=== PATIENT | female | born 1985 | race Caucasian/White ===

== ENCOUNTER → 2016-10-19 | Day surgery (SDC) | payer SELFPAY ==
[~2016-10-19] MED LIST: AZITHROMYCIN 250 MG TAB PO ONE; BUPIVACAINE 0.25% 30 ML VIAL ONE; CEFTRIAXONE 1 GM in D5W 100 ML IV ONE; Clindamycin 600 mg/D5W 50 ml 600 MG/50 ML IVB IV ONE; DEXAMETHASONE 4 MG/ML VIAL IV ONE; FENTANYL 100 MCG/2 ML VIAL IV ONE; FENTANYL 100 MCG/2 ML VIAL IV PRN; GENTAMICIN 160 MG in NS 100 ML IV ONE; GLYCOPYRROLATE 1 MG VIAL IM ONE; HYDROmorphone 1 MG INJECTION IV ONE; HYDROmorphone 1 MG INJECTION IV PRN; KETOROLAC TROMETH 30 MG/ML VIAL IM ONE; LABETALOL 20 MG/4 ML SYRINGE IV PRN; LIDOCAINE 100 MG PFS IV ONE; LR 1,000 ML IV SCH; MEPERIDINE 25 MG/ML TUBEX IV PRN; METOCLOPRAMIDE 10 MG/2 ML VIAL IV ONE; MIDAZOLAM 2 MG/2 ML VIAL IV ONE; NEOSTIGMINE 1 MG/1 ML (1:1000) INJ 10 ML MDV IM ONE; NS 1,000 ML IV ONE; ONDANSETRON HCL 4 MG ODT TAB PO PRN; ONDANSETRON HCL 4 MG/2 ML VIAL IV ONE; ONDANSETRON HCL 4 MG/2 ML VIAL IV PRN; PHENYLEPHRINE 10 MG/ML VIAL IC ONE; PROMETHAZINE 25 MG/ML VIAL IV PRN; PROPOFOL 200 MG/20 ML VIAL IV ONE; Pharmacy Review for Metformin - IV Contrast Given SCH; ROCURONIUM 50 MG/5 ML VIAL IV ONE; SUCCINYLCHOLINE 20 MG/1 ML INJ 10 ML MDV IV ONE; hydrALAZINE 20 MG/ML VIAL IV PRN
[2016-10-19 06:20] VITALS: BMI 21.2
--- NOTE | 2016-10-19 06:23 | EDPRACDOC ---
- General Information Information Source: Patient Mode Of Arrival: Car - History of Present Illness Onset: 2pm yesterday Pain Location: Reports: RLQ Pain Context: Reports: Spontaneous Pain Severity: Mild Pain Quality: Reports: Aching Pain Radiation: Reports: No Radiation Last Menstrual Period: 3 weeks ago : No Adult Abdominal History: Reports: Abdominal Surgery Modifying Factors: improves with: Nothing Female Associated Signs & Symptoms: Reports: Nausea, Vomiting Oral Intake: Normal Urinary Output: Normal <John Paul Jimenez - Last Filed: 10/19/16 07:04> <Denis Herbert - Last Filed: 10/19/16 08:11> - General Information Chief Complaint: Abdominal Pain Stated Complaint: LRQ ABD PAIN/NAUSEA Time Seen by Provider: 10/19/16 06:19 Home Medications: Home Medications Vits W-Ca,Fe,FA(<1Mg) [] 1 each PO DAILY #60 tablet 10/19/16 Allergies/Adverse Reactions: Allergies Allergy/AdvReac Type Severity Reaction Status Date / Time Penicillins Allergy Anaphylaxis Verified 10/19/16 06:29 * - History of Present Illness HPI: PATIENT PRESENTS C/O ABDOMINAL PAIN RLQ SINCE YESTERDAY. HX OF TUBAL LIGATION AND LEFT OOPHORECTOMY. NO FEVER. NAUSEA AND VOMITING. LMP was 10/11/16 (John Paul Jimenez) ED Past Medical History - History Reviewed Yes Nurses notes reviewed and agree except as marked Travel Outside of [place] in the Last 3 Months?: No - Patient Medical History Psychological History: Denies: Depression Surgical History: Denies: Hysterectomy - Social Medical History Smoking Status: Never smoker ETOH: None Substance Abuse: None Lives With: Family Lives In: Home <John Paul Jimenez - Last Filed: 10/19/16 07:04> EDM Review of Systems - Review of Systems ROS Negative Except as Marked: Yes All systems reviewed and were negative except as marked Constitutional: No Symptoms Reported. negative: Fever, Chills, Weakness, Fatigue, Loss of Appetite Eyes: No Symptoms Reported. negative: Redness, Blurred Vision, Double Vision, Discharge, Pain, Light Sensitive, Photophobia Ears: No Symptoms Reported. negative: Pain, Hearing Loss, Drainage, Ear Pulling Throat: No Symptoms Reported. negative: Pain, Swelling Nose: No Symptoms Reported. negative: Congestion, Bleeding, Discharge, Injection, Swelling, Deformity, Ecchymosis, Tender, Abrasion, Laceration Mouth: No Symptoms Reported. negative: Pain, Drooling Respiratory: No Symptoms Reported. negative: Cough, Brassy Cough, Barky Cough, Shortness of Breath, Wheezing, Hemoptysis Cardiovascular: No Symptoms Reported. negative: Chest Pain, Palpitations, Syncope, Edema, Orthopnea, PND, Skin Mottling, Cyanosis Gastrointestinal: Nausea, Pain, Vomiting. negative: Constipation, Diarrhea, Formula Intolerance, Melena Genitourinary: No Symptoms Reported. negative: Dysuria, Hematuria, Frequency, Discharge, Bleeding, Testicular Pain, Neurological: No Symptoms Reported. negative: Headache, Dizziness, Seizure, Numbness, Weakness, Speech Difficulty, Gait Difficulty Musculoskeletal: No Symptoms Reported. negative: Neck, Chestwall, Ribs, Back, Shoulder, Arm, Elbow, Forearm, Wrist, Hand, Pelvis, Hip, Femur, Knee, Leg, Ankle , Foot Integumentary: No Symptoms Reported. negative: Itching, Rash, Bruising, Wound Allergic/Immunologic: No Symptoms Reported. negative: Hives, Itching Hematologic: No Symptoms Reported. negative: Lymphadenopathy, Easy Bruising, Easy Bleeding Endocrine: No Symptoms Reported. negative: Weight Gain, Weight Loss Psychiatric: No Symptoms Reported. negative: Anxiety, Depression, Hallucinations, Insomnia, Suicidal <John Paul Jimenez - Last Filed: 10/19/16 07:04> - Physical Exam Constitutional: Alert (Awake), Distress (MILD) Oriented to: Time, Person, Place - HEENT Head: Normal ( normocephalic) Eye Exam: Normal (PERRL, EOMI, Sclera white) Oropharynx: Normal (Pharynx:Moist without exudate,Gums-no swelling) Tympanic Membrane: Normal ENT EAC: Normal TMJ: Normal Nose: No Symptoms Reported (septum midline) Neck: Normal (FROM, trachea at midline) - Respiratory/Cardiovascular Respiratory: Normal - CTA (BBS clear to auscultation without adventitious sounds ) Cardiovascular: Normal (RRR without murmur, gallop or rub) - GI Auscultation: Normal (NABS) Palpation: Normal (Soft,No rebound or guarding, non distended) Tenderness: Moderate, RLQ. negative: Guarding, Rigidity Ma's Sign: Negative - Bladder: Normal External: Normal Vagina: Discharge (YELLOW) Cervix: Discharge (YELLOW), Tenderness Uterus: Normal size Adnexa: Bilateral: Normal - Musculoskeletal Back: Normal (Non-Tender) Extremities: Normal (Normal tone, Pulses 2+ No cyanosis or edema, FROM) - Integumentary Skin: Normal, Warm, Dry Lymphatics: Normal (no adenopathy) - Neurologic Memory Impaired: Normal Motor Function: Normal (Normal tone, Pulses 2+ No cyanosis or edema, FROM) Cranial Nerve: Normal (CN II-X11 intact sensation, strength 5/5) Cerebellar: Normal Mood Description: Normal Perception: Normal <John Paul Jimenez - Last Filed: 10/19/16 07:04> - Results 10/19/16 06:18 10/19/16 06:18 <John Paul Jimenez - Last Filed: 10/19/16 07:04> - Re-evaluation Re-evaluation 1 Re-evaluation Time: 07:44 - Results 10/19/16 06:18 10/19/16 06:18 <Denis Herbert - Last Filed: 10/19/16 08:11> - Re-evaluation Re-evaluation 1 I HAVE TAKEN OVER CARE OF PT. PT SEEN AND EVALUATED. RESTING COMFORTABLY IN BED. NO DISTRESS. VITAL SIGNS STABLE. No changes in clinical status or new information from previous documentation. Vital Signs: Temp:97.7 F HR: 81 BP: 114/58 RR: 18 Pox: 99%. Continue with current plan. (Denis Herbert) - Results WBC 12.4 xk/uL (3.8-10.8) H 10/19/16 06:18 RBC 3.91 xM/uL (4.20-5.40) L 10/19/16 06:18 Hgb 11.6 g/dL (12.0-16.0) L 10/19/16 06:18 Hct 34.7 % (36-47) L 10/19/16 06:18 MCV 89 fL (81-99) 10/19/16 06:18 MCH 29.5 pg (27-32) 10/19/16 06:18 MCHC 33.3 g/dl (33-36) 10/19/16 06:18 RDW 13.4 % (11.5-14.5) 10/19/16 06:18 Plt Count 230 xk/uL (130-400) 10/19/16 06:18 MPV 9.5 fL (7.4-10.4) 10/19/16 06:18 Neut % (Auto) 62.4 % (45-76) 10/19/16 06:18 Lymph % (Auto) 30.1 % (17-44) 10/19/16 06:18 [place] % (Auto) 6.3 % (3-10) 10/19/16 06:18 Eos % (Auto) 0.9 % (0-5) 10/19/16 06:18 Baso % (Auto) 0.3 % (0-2) 10/19/16 06:18 Absolute Neuts (auto) 7.69 xk/uL (1.7-8.2) 10/19/16 06:18 Absolute Lymphs (auto) 3.72 xk/uL (0.65-4.75) 10/19/16 06:18 Sodium 140 mEq/L (137-146) 10/19/16 06:18 Potassium 3.4 mEq/L (3.5-5.1) L 10/19/16 06:18 Chloride 105 mEq/L (98-107) 10/19/16 06:18 Carbon Dioxide 25 mMOL/L (22-33) 10/19/16 06:18 Anion Gap 13 mEq/L (8-16) 10/19/16 06:18 BUN 8 MG/DL (7-17) 10/19/16 06:18 Creatinine 0.70 MG/DL (0.52-1.04) 10/19/16 06:18 Estimated GFR (MDRD) > 60 mL/min (>=60) 10/19/16 06:18 Glucose 111 mg/dL (70-99) H 10/19/16 06:18 Calculated Osmolality 268 MOs/Kg (270-290) L 10/19/16 06:18 Calcium 8.6 MG/DL (8.4-10.2) 10/19/16 06:18 Corrected Calcium 8.8 MG/DL (8.4-10.2) 10/19/16 06:18 Total Bilirubin 0.6 MG/DL (0.2-1.3) 10/19/16 06:18 AST 23 IU/L (14-36) 10/19/16 06:18 ALT 36 IU/L (9-52) 10/19/16 06:18 Alkaline Phosphatase 51 IU/L (38-126) 10/19/16 06:18 Total Protein 6.8 G/DL (6.3-8.2) 10/19/16 06:18 Albumin 3.8 G/DL (3.5-5.0) 10/19/16 06:18 Lipase 59 U/L (23-300) 10/19/16 06:18 Beta HCG, Quant 1372.5 mIU/mL (<5) 10/19/16 07:22 Urine Color Yellow 10/19/16 06:38 Urine Clarity Clear 10/19/16 06:38 Urine pH 5.0 (5.0-8.0) 10/19/16 06:38 Ur Specific Salters 1.025 (1.003-1.035) 10/19/16 06:38 Urine Protein Neg (NEG/TRACE) 10/19/16 06:38 Urine Glucose (UA) Neg (NEGATIVE) 10/19/16 06:38 Urine Ketones Neg (NEGATIVE) 10/19/16 06:38 Urine Occult Blood Neg (NEG/TRACE) 10/19/16 06:38 Urine Nitrite Neg (NEGATIVE) 10/19/16 06:38 Urine Bilirubin Neg (NEGATIVE) 10/19/16 06:38 Urine Urobilinogen <2.0 MG/DL (0-1) 10/19/16 06:38 Ur Leukocyte Esterase Neg (NEGATIVE) 10/19/16 06:38 Urine RBC 0-2 (0-5) 10/19/16 06:38 Urine WBC 2-5 (0-5) 10/19/16 06:38 Ur Epithelial Cells 1+ 10/19/16 06:38 Urine Bacteria Few (NEG/FEW) 10/19/16 06:38 Urine Mucus Occ (NEG/OCC) 10/19/16 06:38 Urine Test Pos (NEGATIVE) H 10/19/16 06:38 Blood Type A POSITIVE 10/19/16 07:22 Antibody Screen Negative 10/19/16 07:22 Microbiology 10/19/16 06:35 GALLO Preparation - Final Vaginal 10/19/16 06:35 Trichomonas Wet Mount - Final Vaginal Lab Results 10/19/16 10/19/16 10/19/16 07:22 07:22 06:38 WBC RBC Hgb Hct MCV MCH MCHC RDW Plt Count MPV Neut % (Auto) Lymph % (Auto) [place] % (Auto) Eos % (Auto) Baso % (Auto) Absolute Neuts (auto) Absolute Lymphs (auto) Sodium Potassium Chloride Carbon Dioxide Anion Gap BUN Creatinine Estimated GFR (MDRD) Glucose Calculated Osmolality Calcium Corrected Calcium Total Bilirubin AST ALT Alkaline Phosphatase Total Protein Albumin Lipase Beta HCG, Quant 1372.5 Urine Color Yellow Urine Clarity Clear Urine pH 5.0 Ur Specific Salters 1.025 Urine Protein Neg Urine Glucose (UA) Neg Urine Ketones Neg Urine Occult Blood Neg Urine Nitrite Neg Urine Bilirubin Neg Urine Urobilinogen <2.0 Ur Leukocyte Esterase Neg Urine RBC 0-2 Urine WBC 2-5 Ur Epithelial Cells 1+ Urine Bacteria Few Urine Mucus Occ Urine Test Blood Type A POSITIVE Antibody Screen Negative 10/19/16 10/19/16 10/19/16 06:38 06:18 06:18 WBC 12.4 H RBC 3.91 L Hgb 11.6 L Hct 34.7 L MCV 89 MCH 29.5 MCHC 33.3 RDW 13.4 Plt Count 230 MPV 9.5 Neut % (Auto) 62.4 Lymph % (Auto) 30.1 [place] % (Auto) 6.3 Eos % (Auto) 0.9 Baso % (Auto) 0.3 Absolute Neuts (auto) 7.69 Absolute Lymphs (auto) 3.72 Sodium 140 Potassium 3.4 L Chloride 105 Carbon Dioxide 25 Anion Gap 13 BUN 8 Creatinine 0.70 Estimated GFR (MDRD) > 60 Glucose 111 H Calculated Osmolality 268 L Calcium 8.6 Corrected Calcium 8.8 Total Bilirubin 0.6 AST 23 ALT 36 Alkaline Phosphatase 51 Total Protein 6.8 Albumin 3.8 Lipase 59 Beta HCG, Quant Urine Color Urine Clarity Urine pH Ur Specific Salters Urine Protein Urine Glucose (UA) Urine Ketones Urine Occult Blood Urine Nitrite Urine Bilirubin Urine Urobilinogen Ur Leukocyte Esterase Urine RBC Urine WBC Ur Epithelial Cells Urine Bacteria Urine Mucus Urine Test Pos H Blood Type Antibody Screen (Denis Herbert) - Departure Yes I personally saw and evaluated the patient. Education/Counseling Given To: Patient Education/Counseling Given Regarding: Diagnosis, Treatment, Prognosis, Follow Up <John Paul Jimenez - Last Filed: 10/19/16 07:04> - Departure Yes I personally saw and evaluated the patient. Disposition: Admit IP To This Hospital Decision to Admit Time: 08:11 Decision to admit date: 10/19/16 Decision to admit: from ED - Physician Consulted [employer] Time Called: 08:11 Provider Called: Steff Boo Time [employer] Customer Service Specialist Returned Call: 08:11 Consult Reason: WILL SEE IN ED. <Denis Herbert - Last Filed: 10/19/16 08:11> - Departure Condition: Stable Final Diagnosis: Ectopic , tubal Qualifiers: Intrauterine status: without intrauterine Qualified Code(s) : O00.10 - Tubal without intrauterine Prescriptions: New Vits W-Ca,Fe,FA(<1Mg) [] 1 each PO DAILY #60 tablet
[2016-10-19 06:25] LABS: AUTOMATED BASOPHIL 0.3 % (0-2); AUTOMATED EOSINOPHIL 0.9 % (0-5); AUTOMATED LYMPH 30.1 % (17-44); AUTOMATED MONOCYTE 6.3 % (3-10); AUTOMATED NEUTROPHIL 62.4 % (45-76); MPV 9.5 fL (7.4-10.4)
[2016-10-19] MEDS: NS 1,000 ML IV ONE ×2 (06:25→07:17)
[2016-10-19 06:50] LABS: BLOOD UREA NITROGEN 8 MG/DL (7-17); CALC CORRECTED 8.8 MG/DL (8.4-10.2); CALCIUM 8.6 MG/DL (8.4-10.2); CALCULATED OSMOLALITY 268 MOs/Kg (270-290); CHLORIDE 105 mEq/L (98-107); GLUCOSE 111 mg/dL (70-99); SODIUM LEVEL 140 mEq/L (137-146); TOTAL PROTEIN 6.8 G/DL (6.3-8.2)
[2016-10-19 06:53] LABS: LEUKOCYTES/URINE NEG (NEGATIVE); NITRITE/URINE NEG (NEGATIVE); RBC/URINE 0-2 (0-5); URINE OCCULT BLOOD NEG (NEG/TRACE)
--- NOTE | 2016-10-19 08:53 | DIRPT ---
CLINICAL DATA: Abdominal pain and vaginal bleeding since 1400 hours yesterday, , history tubal ligation 2011 new and LEFT oophorectomy quantitative beta HCG = 1372.5 EXAM: OBSTETRIC <14 WK US AND TRANSVAGINAL OB US TECHNIQUE: Both transabdominal and transvaginal ultrasound examinations were performed for complete evaluation of the gestation as well as the maternal uterus, adnexal regions, and pelvic cul-de-sac. Transvaginal technique was performed to assess early . COMPARISON: 04/05/2010 Ob ultrasound from prior FINDINGS: Intrauterine gestational sac: No intrauterine gestational sac identified Yolk sac: N/A Embryo: N/A Cardiac Activity: N/A Heart Rate: N/A bpm Subchorionic hemorrhage: N/A Maternal uterus/adnexae: Uterus is normal in size a with questionable Caesarean section scar at the anterior margin of the lower uterine segment. No mass, gestational sac, fluid, or abnormal fluid collection. Large amount of complicated fluid within cul de sac and pelvis, cannot exclude blood. Small amount of free fluid is seen in Morison's pouch. LEFT ovary surgically absent by history. RIGHT ovary normal in size at 4.6 x 3.1 x 3.1 cm. Blood flow present within RIGHT ovary on color Doppler imaging. Abnormal material identified in RIGHT adnexa, adjacent to uterus and surrounding RIGHT ovary. While a discrete mass typical of an ectopic is not visualized, if better is not excluded. IMPRESSION: No intrauterine gestation identified. Surgical absence of LEFT ovary. Normal appearing RIGHT ovary though abnormal material question soft tissue versus clot is identified within the RIGHT adnexa. Large amount of complex free pelvic fluid question blood. Unable to exclude ectopic as cause of the RIGHT adnexal process though do not discretely visualize the ectopic . Findings discussed with Dr. Herbert on 10/19/2016 at 0849 hours. Electronically Signed By: Neri Laura M.D. On: 10/19/2016 08:50
--- NOTE | 2016-10-19 09:07 | HISTPHYS ---
- HISTORY OF PRESENT ILLNESS Age: 31 : 4 Para: 3 Patient Presents to:: Emergency Department Presents for:: Abdominal Pain, Vaginal Bleeding Current : Smoking - REVIEW OF SYSTEMS Reports/Denies: Reports: Vaginal Bleeding, Heartburn/Indigestion Pain: Reports: Abdominal - ALLERGIES Allergies Allergy/AdvReac Type Severity Reaction Status Date / Time Penicillins Allergy Anaphylaxis Verified 10/19/16 06:29 * - CURRENT MEDICATIONS [place] Medications Vits W-Ca,Fe,FA(<1Mg) [] 1 each PO DAILY #60 tablet 10/19/16 [ Rx] - PAST MEDICAL HISTORY Reports: No Significant History - PAST SURGICAL HISTORY Reports: Section laparotomy with removal of left ovary - SOCIAL HISTORY Smoking Status: Never smoker Marital Status: Single (Never ) - PHYSICAL EXAM Vital Signs:: Temperature: 97.7 F (10/19/16 06:08) HR: 81 (10/19/16 08:16) RR: 18 (10/19/16 08:16) BP: 107/64 (10/19/16 08:16) Pulse Ox: 100 (10/19/16 08:16) GENERAL: Alert, Oriented, No Acute Distress, Anxious HEENT: Normal CARDOVASCULAR/CHEST: Normal RESPIRATORY: Normal - CTA ABDOMEN: Soft, Tender MUSCULOSKELETAL: Normal EXTERMITIES: Moves All Extremeties. negative: Edema - ASSESSMENT (ACTIVE PROBLEMS) (1) Ectopic without intrauterine Acute O00.90 - UNSPECIFIED ECTOPIC WITHOUT INTRAUTERINE (2) Hemoperitoneum due to rupture of right tubal ectopic Acute O00.10 - TUBAL WITHOUT INTRAUTERINE ; K66.1 - HEMOPERITONEUM - PLAN Other Plan: Discussed finding with patient concerning for ruptured ectopic with hemoperitoneum. Discussed indications for laparoscopy. Patient understands risks and wishes to proceed as planned. Will proceed with laparoscopy and possible salpingectomy or oophorectomy. Risks reviewed.
--- NOTE | 2016-10-19 10:02 | SC.ANESPOS ---
Post-Anesthesia Note LOC: [facility] Calling Post-Anesthesia Assessment: Awake, Returned to Baseline, Hemodynamically Stable , Pain Control Adequate Phase I & II Recovery Complete: Yes Apparent Anesthesia Complication: No : N - Vital Signs Blood Pressure: 109/58 Pulse: 80 Resp Rate: 18 O2 Sat: 95 Temp: 97.7 F
--- NOTE | 2016-10-19 10:04 | HIM.ANES ---
Anesthesia Evaluation & Plan Surgeon:: Steff Boo - Focused Review of Systems Now: No Psychological: No Hx Depression Smoking Status: Never smoker Alcohol use: None - Focused Physical Exam NPO since: 399 Mallampati: Class II Thyromental Distance: Greater than 3 Dental: Normal - no significant findings Cardiovascular/Chest: Normal Respiratory: Lungs clear Any problems with anesthesia, including nausea and vomiting?: No Any relatives with a history of Malignant Hyperthermia?: No Does patient have a history of Malignant Hyperthermia?: No Beta Narciso given (if appropriate): N/A Other: Problem List Problem Status Onset Ectopic without intrauterine Acute Ectopic , tubal Acute Hemoperitoneum due to rupture of right tubal ectopic Acute Accidental fall Acute Sprain of knee Acute PT/PTT/INR/ Urine Test Pos (NEGATIVE) H 10/19/16 06:38 CBC/BMP/Other 10/19/16 06:18 10/19/16 06:18 Allergies Allergy/AdvReac Type Severity Reaction Status Date / Time Penicillins Allergy Anaphylaxis Verified 10/19/16 06:29 * Home Medications Medication Instructions Recorded Last Taken Type Vits W-Ca,Fe,FA(<1Mg) 1 each PO DAILY #60 tablet 10/19/16 Unknown Rx [] Height and Weight Patient's height 5 ft 8 in Patient's weight 140 lb Weight (Calculated Kilograms) 63.503 BMI 21.2 Vital Signs Temperature 97.7 F 10/19/16 10:02 Pulse Rate 80 10/19/16 10:02 Respiratory Rate 18 10/19/16 10:02 Blood Pressure 109/58 L 10/19/16 10:02 Pulse Oxygen Saturation 95 10/19/16 10:02 - Anesthetic Plan Anesthesia Type: General ASA Class: 2, E -: I have examined this patient and reviewed the medical record. The patient has been assessed prior to anesthesia. Risks and benefits of anesthesia and anesthetic technique options have been discussed and all questions answered. The patient accepts the risk and desires me to proceed with the planned anesthetic.
[2016-10-19 15:17] VITALS: BP 109/58; PULSE 80; TEMP 97.7
--- NOTE | 2016-10-19 15:25 | HIMOPRPT ---
DATE OF PROCEDURE: October 19, 2016 PREOPERATIVE DIAGNOSIS: Right ectopic , hemoperitoneum POSTOPERATIVE DIAGNOSIS: Same PROCEDURE: Laparoscopy with right salpingectomy and evacuation of hemoperitoneum SURGEON: Rajeev ANESTHESIA: General endotracheal ESTIMATED BLOOD LOSS: 100 cc COMPLICATIONS: None FINDING: Large amount of blood and clot in the pelvis and abdomen area apparent right distal tube ectopic with active bleeding, normal ovary DESCRIPTION OF PROCEDURE: Patient is taken the operating room anesthesia found be adequate. She is prepped and draped usual fashion and her bladder was emptied with a catheter. Attention turned the abdomen 0.25% Marcaine was injected at the infraumbilical incision site a 5 mm incision made with scalpel. Trocar inserted using laparoscope. This time a new peritoneum was created in the above-noted findings seen. The hemoperitoneum was evacuated in normal fashion. At this time a right salpingectomy was performed using Harmonic scalp without difficulty in maintaining hemostasis throughout the procedure. Pelvis was irrigated with saline and hemostasis found to be excellent. The abdominal pressure was decreased and again hemostasis found to be excellent. No other evidence of bleeding or ectopic. At this time the pneumoperitoneum was released. The ports were removed. Incision closed 4 O Monocryl subcuticular fashion. Dermabond was applied to the skin sites. Sponge laps and counts correct x2. Patient tolerated well was awakened and taken to recovery room in stable condition
[2016-10-22 07:39] LABS: CHLAMY BY NUCLEIC ACID AMP Negative (Negative)
[2016-10-22 08:56] LABS: GC BY NUCLEIC ACID AMP Negative (Negative)
== END ==
LOC: ED 06:08 → SDC 09:23
PROVIDERS: ATTEND Obstetrics & Gynecology
PROC: 0UB54ZZ Excision of Right Fallopian Tube, Percutaneous Endoscopic Approach (ICD-10-PCS; 2016-10-19)
PROC: 10T24ZZ Resection of Products of Conception, Ectopic, Percutaneous Endoscopic Approach (ICD-10-PCS; principal; 2016-10-19 11:00)
DX: O00.10 Tubal pregnancy without intrauterine pregnancy (principal); K66.1 Hemoperitoneum
CPT/HCPCS: 36415; 59151; 76801; 76817; 80053; 81001; 81025; 83690; 84702; 85025; 86850; 86900; 86901; 87210; 87220; 87491; 87591; 96361; 96374; 96375; 99283; J0330; J0696; J1100; J1170; J1580; J1885; J2001; J2250; J2370; J2405; J2710; J2765; J3010; J3490; J7030; J7060; S0020